=== PATIENT | female | born 1960 | race Caucasian/White ===

== ENCOUNTER 2018-05-21 09:07 | Emergency (ER) | payer OTHER, SELFPAY ==
[2018-05-21 09:08] VITALS: BP 171/97; PULSE 112; RESP 18; TEMP 36.9; O2SAT 99; BMI 29.7
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
== END 2018-05-21 10:17 | disposition home or self-care (01) ==
LOC: ED 10:13
PROVIDERS: Emergency Provider Emergency Medicine; Family Provider Nurse Practitioner Primary Care; PCP Nurse Practitioner Primary Care
DX: S16.1XXA Strain of muscle, fascia and tendon at neck level, initial encounter (principal); V49.40XA Driver injured in collision with unspecified motor vehicles in traffic accident, initial encounter; Y93.89 Activity, other specified; Y92.411 Interstate highway as the place of occurrence of the external cause
CPT/HCPCS: 71046; 72040; 99284